=== PATIENT | female | born 1965 | race American Indian/Alaskan Native ===

== ENCOUNTER 2017-08-23 16:08 | Emergency (ER) | payer MEDICAID ==
[2017-08-23 16:08] VITALS: BMI 32.8
== END 2017-08-23 16:28 | disposition left against medical advice (07) ==
LOC: ED 16:08
DX: Z02.89 Encounter for other administrative examinations (principal); R25.1 Tremor, unspecified

== ENCOUNTER 2017-08-24 11:30 | Emergency (ER) | payer MEDICAID ==
[2017-08-24 11:30] VITALS: BMI 32.8
--- NOTE | 2017-08-24 12:15 | ED PDOC ---
Arrival/HPI - General Chief Complaint: Dental Pain Time Seen by Provider: 08/24/17 12:04 Historian: Patient - History of Present Illness Narrative History of Present Illness (Text): 08/24/17 12:14 A 51 year old female, whose past medical history includes bipolar disorder, presents to the emergency department complaining of a right sided dental pain with neck swelling for the past 4 days. Patient notes a subjective fever last night but denies any nausea, vomiting, abdominal pain, chest pain, shortness of breath, cough or any other complaints. Patient had come with family last night to the ED, but per family, she refused to stay and be seen and walked out of the waiting room. Time/Duration: Other ( 4 days) Symptom Course: Worsening Quality: Other Context: Home Past Medical History - Provider Review Nursing Documentation Reviewed: Yes - Infectious Disease Hx of Infectious Diseases: None - Reproductive Menopause: No - Musculoskeletal/Rheumatological Hx Falls: No - Psychiatric Hx Bipolar Disorder: Yes Hx Depression: No Hx Emotional Abuse: No Hx Physical Abuse: No Hx Substance Use: No - Suicidal Assessment Feels Threatened In Home Enviroment: No Family/Social History - Physician Review Nursing Documentation Reviewed: Yes Family/Social History: No Known Family HX Smoking Status: Current Some Days Smoker Hx Alcohol Use: No Hx Substance Use: No Allergies/Home Meds Allergies/Adverse Reactions: Allergies No Known Allergies Allergy (Verified 04/18/12 13:30) Home Medications: Home Meds Medication Instructions Recorded Confirmed No Known Home Med 04/18/12 04/18/12 Review of Systems - Physician Review All systems were reviewed & negative as marked: Yes - Review of Systems Constitutional: Fevers ENT: Other (dental pain and neck swelling) Respiratory: absent: SOB, Cough Cardiovascular: absent: Chest Pain Gastrointestinal: absent: Abdominal Pain, Nausea, Vomiting Skin: Abscess (right sided dental abscess) Physical Exam Vital Signs Temp Pulse Resp BP Pulse Ox 08/24/17 12:28 100.2 F H 98 H 18 128/79 98 08/24/17 11:55 98.8 F 102 H 16 131/84 98 Temperature: Febrile (low grade) Blood Pressure: Normal Pulse: Tachycardic Respiratory Rate: Normal Appearance: Positive for: Non-Toxic Pain Distress: None Mental Status: Positive for: Alert and Oriented X 3 - Systems Exam Head: Present: Atraumatic, Normocephalic Pupils: Present: PERRL Conjunctiva: Present: Normal Mouth: Present: Moist Mucous Membranes, Other (poor dentition; ttp R premolar region) Pharnyx: Present: Normal. No: ERYTHEMA, EXUDATE, Peritonsilar Swelling, Uvular Deviation, Muffled/Hoarse Voice, Strider, Soft Palate/Uvular Edema Neck: Present: Normal Range of Motion, Other (There is erythema and swelling at the angle of the mandible on the rigth side spreading toward the R submandibular region and toward the right submental area) Respiratory/Chest: Present: Clear to Auscultation, Good Air Exchange. No: Respiratory Distress, Accessory Muscle Use Cardiovascular: Present: Regular Rate and Rhythm, Normal S1, S2. No: Murmurs Abdomen: Present: Normal Bowel Sounds. No: Tenderness, Distention, Peritoneal Signs Back: Present: Normal Inspection Upper Extremity: Present: Normal Inspection. No: Cyanosis, Edema Lower Extremity: Present: Normal Inspection. No: Edema Neurological: Present: GCS=15, CN II-XII Intact, Speech Normal Skin: Present: Warm, Dry, Normal Color. No: Rashes Psychiatric: Present: Alert, Oriented x 3, Normal Insight, Normal Concentration Medical Decision Making ED Course and Treatment: 08/24/17 12:14 Impression: A 51 year old female with a right sided dental abscess with facial cellulitis Differential: isolated dental abscess with cellulitis vs kelly's. Plan: -- Maxillofacial CT -- Neck CT -- Chest xray -- Labs -- Blood and Urine culture -- Urinalysis -- Cleocin and IV fluids -- Reassess and disposition Progress Notes: Report Date : 08/24/2017 14:29:53 PROCEDURE: CT NECK WITH CONTRAST Dictator : Harrison Watts MD IMPRESSION: Superficial cellulitis on the right side adjacent to the mandible. No evidence of swelling of the floor of the mouth. No airway obstruction. Mild bilateral cervical adenopathy Report Date : 08/24/2017 14:48:25 Procedure: Chest xray Dictator : Harrison Watts MD IMPRESSION: No active disease. 08/24/17 15:34 Labs with leukocytosis; CT results showing the cellulitis but no airway concerns of kelly's. Patient needs to be admitted for iv antibiotics, however she eloped from the emergency department. Spoke with Martha Kc and informed that he patient needs to return to the emergency department to admitted. However, if the patient winds up not returning to the emergency department, a script for clindamycin was called in to the pharmacy ([facility] on [address] in [place]), which I informed martha may be not be sufficient and recommend IV antibiotics. - Lab Interpretations Lab Results: 08/24/17 13:21 08/24/17 13:21 Lab Results 08/24/17 13:21: Sodium 138, Chloride 101, Potassium 3.9, Carbon Dioxide 27, Anion Gap 14, BUN 7, Creatinine 0.8, Est GFR ( Amer) > 60, Est GFR (Non- Af Amer) > 60, Random Glucose 107, Calcium 9.4, Phosphorus 2.9, Magnesium 2.1, Total Bilirubin 0.9, AST 24, ALT 32, Alkaline Phosphatase 90, Total Protein 8.5 H, Albumin 4.6, Globulin 3.9, Albumin/Globulin Ratio 1.2, Lipase 65 08/24/17 13:21: pO2 40, VBG pH 7.38, VBG pCO2 47.0, VBG HCO3 27.8, VBG Total CO2 29.2 H, VBG O2 Sat (Calc) 83.2 H, VBG Base Excess 2.0, VBG Potassium 3.8, Sodium 135.0, Chloride 102.0, Glucose 107 H, Lactate 1.0, FiO2 21.0, Venous Blood Potassium 3.8 08/24/17 13:21: PT 12.7 H, INR 1.18 H, APTT 40.1 H 08/24/17 13:21: WBC 12.4 H, RBC 4.94, Hgb 14.1, Hct 39.8, MCV 80.6, MCH 28.5, MCHC 35.4, RDW 13.3, Plt Count 220, MPV 10.1, Gran % 81.3 H, Lymph % (Auto) 11.0 L, [place] % (Auto) 7.4 H, Eos % (Auto) 0.1 L, Baso % (Auto) 0.2, Gran # 10.07 H, Lymph # 1.4, [place] # 0.9 H, Eos # 0.0, Baso # 0.02 08/24/17 13:03: Urine Opiates Screen Negative, Urine Methadone Screen Negative, Ur Barbiturates Screen Negative, Ur Phencyclidine Scrn Negative, Ur Amphetamines Screen Negative, U Benzodiazepines Scrn Negative, U Oth Cocaine Metabols Negative, U Cannabinoids Screen Negative 08/24/17 13:03: Urine Color Yellow, Urine Appearance Clear, Urine pH 6.0, Ur Specific Sundown <= 1.005, Urine Protein Negative, Urine Glucose (UA) Negative, Urine Ketones Negative, Urine Blood Small H, Urine Nitrate Negative, Urine Bilirubin Negative, Urine Urobilinogen 4.0 H, Ur Leukocyte Esterase Negative, Urine RBC 0 - 2, Urine WBC Negative, Ur Epithelial Cells 0 - 2, Urine Bacteria Trace I have reviewed the lab results: Yes - RAD Interpretation Radiology Orders: 08/24/17 12:17 CHEST TWO VIEWS (PA/LAT) [RAD] Stat 08/24/17 12:18 NECK SOFT TISSUE W/CONTRAST [CT] Stat - Medication Orders Current Medication Orders: Discontinued Medications Clindamycin Phosphate 600 mg/ (Sodium Chloride) 54 mls @ 108 mls/hr IVPB STAT STA PRN Reason: Protocol Stop: 08/24/17 12:47 Last Admin: 08/24/17 13:15 Dose: 108 mls/hr eMAR Start Stop Document 08/24/17 13:15 DREW (Rec: 08/24/17 13:21 [email or web address] Intravenous Solution Start Date 08/24/17 Start Time 13:15 End Date 08/24/17 End time 13:45 Total Infusion Time 30 Sodium Chloride (Sodium Chloride 0.9%) 1,000 mls @ 999 mls/hr IV .Q1H1M STA Stop: 08/24/17 13:20 Last Admin: 08/24/17 13:15 Dose: 999 mls/hr eMAR Start Stop Document 08/24/17 13:15 DREW (Rec: 08/24/17 13:21 DRE[email or web address] Intravenous Solution Start Date 08/24/17 Start Time 13:15 End Date 08/24/17 End time 14:15 Total Infusion Time 60 - Scribe Statement The provider has reviewed the documentation as recorded by the Benjyiblouise Mcgregor Provider Scribe Attestation: All medical record entries made by the Scribe were at my direction and personally dictated by me. I have reviewed the chart and agree that the record accurately reflects my personal performance of the history, physical exam, medical decision making, and the department course for this patient. I have also personally directed, reviewed, and agree with the discharge instructions and disposition. Disposition/Present on Arrival - Present on Arrival Any Indicators Present on Arrival: No History of DVT/PE: No History of Uncontrolled Diabetes: No Urinary Catheter: No History of Decub. Ulcer: No History Surgical Site Infection Following: None - Disposition Have Diagnosis and Disposition been Completed?: Yes Diagnosis: Facial cellulitis, Dental infection Disposition: ELOPEMENT - ER ONLY Disposition Time: 14:00 Patient Plan: Other (ELOPED) Condition: SERIOUS Referrals: PCP,NO [Primary Care Provider] - Follow up with primary Forms: [employer] ([place]ali)
[2017-08-24] MEDS ORDERED: Sodium Chloride 0.9% 1,000 ML IV STA (12:20)
[2017-08-24 12:28] VITALS: TEMP 100.2
[2017-08-24] MEDS ORDERED: Iohexol 350 MG/100 ML VIAL ONE (13:14)
[2017-08-24 13:21] LABS: URINE APPEARANCE CLEAR (CLEAR); URINE BILIRUBIN NEGATIVE (NEGATIVE); URINE BLOOD SMALL (NEGATIVE); URINE COLOR YELLOW (YELLOW); URINE GLUCOSE (UA) NEGATIVE (NEGATIVE); URINE KETONE NEGATIVE (NEGATIVE); URINE LEUKOCYTE ESTERASE NEGATIVE Leu/uL (NEGATIVE); URINE PROTEIN NEGATIVE mg/dL (<30 mg/dL)
[2017-08-24 13:27] LABS: VENOUS BLOOD PH 7.38 (7.32-7.43)
[2017-08-24 13:30] LABS: BASO # 0.02 K/mm3 (0.0-2.0); BASO % 0.2 % (0.0-3.0); EOS % 0.1 % (1.5-5.0); GRAN # 10.07 (1.4-6.5); GRAN % 81.3 % (50.0-68.0); HEMATOCRIT 39.8 % (36.0-48.0); LYMPH # 1.4 (1.2-3.4); MEAN CELL VOLUME 80.6 fl (80.0-105.0); MEAN CORPUSCULAR HEMOGLOBIN 28.5 pg (25.0-35.0); MEAN CORPUSCULAR HGB CONC 35.4 g/dl (31.0-37.0); MEAN PLATELET VOLUME 10.1 fl (7.0-11.0); MONO # 0.9 (0.1-0.6); MONO % 7.4 % (1.0-6.0); RED CELL DISTRIBUTION WIDTH 13.3 % (11.5-14.5); WHITE BLOOD COUNT 12.4 10^3/ul (4.5-11.0)
[2017-08-24 13:35] LABS: ALB/GLOB RATIO 1.2 (1.1-1.8); ALKALINE PHOSPHATASE 90 U/L (38-126); ALT/SGPT 32 U/L (7-56); AST/SGOT 24 U/L (14-36); BILIRUBIN,TOTAL 0.9 mg/dL (0.2-1.3); BLOOD UREA NITROGEN 7 mg/dL (7-21); CALCIUM 9.4 mg/dL (8.4-10.5); CARBON DIOXIDE 27 mmol/L (21-33); CHLORIDE 101 mmol/L (98-107); GFR AFRICAN-AMERICAN > 60; GLUCOSE,RANDOM 107 mg/dL (70-110); LIPASE 65 U/L (23-300); MAGNESIUM 2.1 mg/dL (1.7-2.2); PHOSPHOROUS 2.9 mg/dL (2.5-4.5); POTASSIUM 3.9 mmol/L (3.6-5.0); SODIUM 138 mmol/L (132-148); TOTAL PROTEIN 8.5 g/dL (5.8-8.3)
[2017-08-24 13:37] LABS: URINE BACTERIA TRACE (NEG); URINE EPITHELIAL CELLS 0 - 2 /hpf (0-5); URINE RBC 0 - 2 /hpf (0-2); URINE WBC NEGATIVE /hpf (0-6)
[2017-08-24 13:38] LABS: INR 1.18 (0.93-1.08); PARTIAL THROMBOPLASTIN TIME 40.1 Seconds (23.7-30.8)
--- NOTE | 2017-08-24 14:31 | CT ---
PROCEDURE: CT NECK WITH CONTRAST HISTORY: R (sub)mandib, submental inf - r/o kelly, abscess COMPARISON: None TECHNIQUE: CT of the neck with intravenous contrast. Coronal and sagittal reformats generated. Intravenous contrast dose: 100 cc of Omni 350 Radiation dose: DLP 378 mGy-cm This CT exam was performed using one or more of the following dose reduction techniques: Automated exposure control, adjustment of the mA and/or kV according to patient size, and/or use of iterative reconstruction technique. FINDINGS: NASOPHARYNX: Unremarkable. SUPRAHYOID NECK: Unremarkable oropharynx, oral cavity, parapharyngeal space and retropharyngeal space. INFRAHYOID NECK: Unremarkable larynx, hypopharynx, and supraglottic space. Vocal cords intact. MASS: None. GLANDS: Parotid and submandibular glands unremarkable. Normal size thyroid gland, without nodule. LYMPH NODES: There is mild bilateral cervical adenopathy CERVICAL SPINE: No fracture or focal lesion. VASCULAR STRUCTURES: Unremarkable. OTHER FINDINGS: There is soft tissue swelling and subcutaneous edema anterior to the mandible on the right. This is consistent with cellulitis. There are some bony lucencies in the alveolar ridge of the maxilla consistent with dental disease. The mandible is unremarkable IMPRESSION: Superficial cellulitis on the right side adjacent to the mandible. No evidence of swelling of the floor of the mouth. No airway obstruction. Mild bilateral cervical adenopathy
--- NOTE | 2017-08-24 14:51 | RAD ---
HISTORY: fever COMPARISON: No prior. TECHNIQUE: Chest PA and lateral FINDINGS: LUNGS: No active pulmonary disease. PLEURA: No significant pleural effusion identified. No pneumothorax apparent. CARDIOVASCULAR: Normal. OSSEOUS STRUCTURES: No significant abnormalities. VISUALIZED UPPER ABDOMEN: Normal. OTHER FINDINGS: None. IMPRESSION: No active disease.
[2017-08-24 15:45] VITALS: BP 130/82; PULSE 80; RESP 17; O2SAT 100
== END 2017-08-24 14:20 | disposition left against medical advice (07) ==
LOC: ED 11:30
DX: L03.211 Cellulitis of face (principal); K04.7 Periapical abscess without sinus
CPT/HCPCS: 70491; 71020; 80053; 80324; 80345; 80346; 80349; 80353; 80358; 80361; 81001; 82803; 83690; 83735; 83992; 84100; 85025; 85610; 85730; 87040; 87086; 96365; 99283; J7040; Q9967